=== PATIENT | male | born 1980 | race African-American/Black ===

== ENCOUNTER 2023-06-03 05:06 | Emergency (ER) | payer MEDICAID, OTHER ==
[~2023-06-03] VITALS: Ht 175.3 cm; Wt 90.0 kg
[2023-06-03 05:10] VITALS: O2SAT 98
[2023-06-03] MEDS ORDERED: IBUPROFEN 800MG TABLET PO ONE (05:45)
[2023-06-03] MEDS ORDERED: IBUPROFEN 400MG TABLET PO SCH (06:15)
[2023-06-03 09:29] VITALS: BP 134/83; PULSE 77; RESP 18; TEMP 98.4
== END 2023-06-03 09:44 | disposition home or self-care (01) ==
LOC: ER 05:11
DX: S80.12XA Contusion of left lower leg, initial encounter (principal); I10 Essential (primary) hypertension; F17.200 Nicotine dependence, unspecified, uncomplicated; W18.2XXA Fall in (into) shower or empty bathtub, initial encounter; Y93.9 Activity, unspecified; Y92.89 Other specified places as the place of occurrence of the external cause; Y99.8 Other external cause status
CPT/HCPCS: 73590; 99283